=== PATIENT | female | born 1990 | race Caucasian/White ===

== ENCOUNTER → 2019-09-10 | Outpatient (CLI) | payer MEDICAID ==
[2019-09-10 11:18] LABS: Basophils % (A) 0 %; Eosinophils # (A) 0.2 k/uL (0-0.7); Eosinophils % (A) 3 %; HCT 41.2 % (34.0-46.0); Lymphocytes # (A) 1.6 k/uL (1.0-4.8); Lymphocytes % (A) 27 %; MCH 30.9 pg (25.0-35.0); MCV 90.8 fL (80.0-100.0); Mean Platelet Volume 5.7; Monocytes # (A) 0.3 k/uL (0-1.0); Monocytes % (A) 4 %; Neutrophils # (A) 3.9 k/uL (1.3-7.7); Neutrophils % (A) 65 %; Platelet Count 228 k/uL (150-450); RBC 4.53 m/uL (3.80-5.40); RDW 12.1 % (11.5-15.5); WBC 6.1 k/uL (3.8-10.6)
[2019-09-10 16:39] LABS: African American GFR (CKD) 116.3 (60.0-200.0); Albumin 4.8 g/dL (3.80-4.90); Albumin/Globulin Ratio 2.09 (1.60-3.17); BUN/Creat Ratio 18.75 Ratio (12.00-20.00); Calcium 9.7 mg/dL (8.7-10.3); Chol/HDL Ratio 3.93; Globulin 2.3 g/dL (1.6-3.3); Non-African American GFR(CKD) 100.3 (60.0-200.0); Potassium 4.1 mmol/L (3.5-5.5); Total Protein 7.1 g/dL (6.2-8.2)
[2019-09-10 17:02] LABS: T4, Free (Free Thyroxine) 0.8 ng/dL (0.80-1.80)
== END | disposition home or self-care (01) ==
LOC: LABWHC1 10:42
DX: Z00.01 Encounter for general adult medical examination with abnormal findings (principal); E03.9 Hypothyroidism, unspecified; E55.9 Vitamin D deficiency, unspecified
CPT/HCPCS: 36415; 80053; 80061; 82306; 84439; 84443; 85025

== ENCOUNTER → 2019-10-12 | Outpatient (CLI) | payer MEDICAID ==
--- NOTE | 2019-10-12 13:53 | US ---
EXAMINATION TYPE: US thyroid st tissue head/neck DATE OF EXAM: 10/12/2019 COMPARISON: NONE CLINICAL HISTORY: E06.9 THYROIDITIS. GLAND SIZE: Right Lobe: 4.5 x 1.5 x 1.5 cm Overall Parenchyma: heterogenous Left Lobe: 4.7 x 1.3 x 1.6 cm Overall Parenchyma: heterogeneous Isthmus Thickness: 0.3 cm NODULES RIGHT: # of nodules measured on right: 0 LEFT: # of nodules measured on left: 0 ISTHMUS: # of nodules measured in the isthmus: 0 Bilateral neck scanned, no evidence of lymphadenopathy. Gland is diffusely heterogeneous bilaterally. IMPRESSION: Diffuse glandular heterogeneity without discrete nodule. Finding could be on the basis of chronic or acute thyroiditis. Correlate with serum laboratory values.
== END | disposition home or self-care (01) ==
LOC: RADUSWWP 13:21
PROVIDERS: ATTEND Nurse Practitioner Primary Care
DX: R94.6 Abnormal results of thyroid function studies (principal); E06.3 Autoimmune thyroiditis
CPT/HCPCS: 76536

== ENCOUNTER → 2020-02-10 | Outpatient (CLI) | payer MEDICAID ==
[2020-02-10 18:38] LABS: T4, Free (Free Thyroxine) 1.4 ng/dL (0.80-1.80)
== END | disposition home or self-care (01) ==
LOC: LABWHC1 11:17
PROVIDERS: ATTEND Nurse Practitioner Primary Care
DX: E05.90 Thyrotoxicosis, unspecified without thyrotoxic crisis or storm (principal)
CPT/HCPCS: 36415; 84439; 84443

== ENCOUNTER → 2020-03-02 | Outpatient (CLI) | payer MEDICAID ==
[2020-03-02 14:17] LABS: African American GFR (CKD) >90 (>60 ml/min/1.73 sqM); Anion Gap 6 mmol/L; Blood Urea Nitrogen 10 mg/dL (7-17); Calcium 9.3 mg/dL (8.4-10.2); Carbon Dioxide 27 mmol/L (22-30); Chloride 103 mmol/L (98-107); Glucose 86 mg/dL (74-99); Non-African American GFR(CKD) >90 (>60 ml/min/1.73 sqM); Potassium 3.9 mmol/L (3.5-5.1); Sodium 136 mmol/L (137-145)
[2020-03-02 14:19] LABS: Basophils % (A) 0 %; Eosinophils # (A) 0.1 k/uL (0-0.7); Eosinophils % (A) 1 %; HCT 40.8 % (34.0-46.0); HGB 13.4 gm/dL (11.4-16.0); Lymphocytes # (A) 1.4 k/uL (1.0-4.8); Lymphocytes % (A) 21 %; MCH 31.1 pg (25.0-35.0); MCHC 32.7 g/dL (31.0-37.0); MCV 94.9 fL (80.0-100.0); Mean Platelet Volume 7.6; Monocytes # (A) 0.3 k/uL (0-1.0); Monocytes % (A) 4 %; Neutrophils # (A) 4.7 k/uL (1.3-7.7); Neutrophils % (A) 73 %; Platelet Count 210 k/uL (150-450); WBC 6.5 k/uL (3.8-10.6)
== END | disposition home or self-care (01) ==
LOC: LABPAT 11:55
PROVIDERS: ATTEND Urology
DX: Z01.818 Encounter for other preprocedural examination (principal); N30.11 Interstitial cystitis (chronic) with hematuria; N13.1 Hydronephrosis with ureteral stricture, not elsewhere classified
CPT/HCPCS: 36415; 80048; 81025; 85025

== ENCOUNTER → 2020-03-07 | Outpatient (CLI) | payer MEDICAID | END | disposition home or self-care (01) | LOC: LABWHC1 13:41 | PROVIDERS: ATTEND Urology | DX: Z11.59 Encounter for screening for other viral diseases (principal) ==

== ENCOUNTER → 2020-03-09 | Day surgery (SDC) | payer MEDICAID ==
[2020-03-08 10:56] VITALS: BMI 25.0
--- NOTE | 2020-03-08 14:32 | P.GSHP ---
History of Present Illness H&P Date: 03/03/20 Chief Complaint: Bladder pain The patient is a 29-year-old white female diagnosed with interstitial cystitis and approximately 2012. She has failed treatment with Elmiron, Elavil, and rescue treatments. InterStim (which has been removed) and Myrbetriq caused decreased urinary frequency. She underwent Botox on 1-2 occasions, resulting in hesitancy, decreased urinary frequency, but no change in her bladder pain. She has undergone hydrodistention with DMSO instillation on multiple occasions, most recently in May 2019. This usually results in decreased bladder pain. The patient also has a history of medullary sponge kidney and urolithiasis. She has passed several small calculi in recent years. She has previously undergone ureteroscopy on 2 occasions, and states that she had a right ureteral stricture. - Constitutional Constitutional: Denies chills, Denies fever - Genitourinary (Male) Genitourinary: Reports urinary frequency, Denies dysuria, Denies flank pain, Denies hematuria Past Medical History Past Medical History: Thyroid Disorder Additional Past Medical History / Comment(s): Interstitial cystitis, kidney stones, hypothyroidism, L5-S1 disc herniation Additional Past Surgical History / Comment(s): Interstim insertion with subsequent removal, section, repair of rectal fissure, multiple cystoscopy with hydrodistentions, cystoscopy with Botox - Past Family History Mother Family Medical History: No Reported History Medications and Allergies Home Medications Medication Instructions Recorded Confirmed Type Levothyroxine Sodium [Synthroid] 50 mcg PO DAILY 03/08/20 03/08/20 History Norethindrone-E.estradiol-Iron 1 each PO DAILY 03/08/20 03/08/20 History [Junel Fe 24 Tablet] Oxybutynin Chloride [Oxybutynin 10 mg PO DAILY 03/08/20 03/08/20 History Chloride ER] Promethazine [Phenergan] 12.5 mg PO BID 03/08/20 03/08/20 History traMADol HCL [Ultram] 100 mg PO BID 03/08/20 03/08/20 History Allergies Allergy/AdvReac Type Severity Reaction Status Date / Time adhesive tape Allergy Rash/Hives Verified 03/08/20 10:27 ceftriaxone [From Rocephin] Allergy Rash/Hives Verified 03/08/20 10:27 Penicillins Allergy Unknown Verified 03/08/20 10:27 Childhood Surgical - Exam - General well developed, well nourished, no distress - Neck no masses, trachea midline - Respiratory normal respiratory effort, clear to auscultation - Cardiovascular Rhythm: regular Abnormal Heart Sounds: no systolic murmur, no diastolic murmur, no rub, no S3 Gallop, no S4 Gallop, no click, no other - Abdomen Abdomen: soft, non tender, no guarding, no rigid, no rebound - Genitourinary normal external genitalia, normal perineum - Psychiatric oriented to time, oriented to person, oriented to place, speech is normal, memory intact Assessment and Plan (1) Interstitial cystitis Status: Acute Code(s): N30.10 - INTERSTITIAL CYSTITIS (CHRONIC) WITHOUT HEMATURIA SNOMED Code(s): 223918229 (2) Hydronephrosis with ureteral stricture, not elsewhere classified Status: Acute Code(s): N13.1 - HYDRONEPHROSIS W URETERAL STRICTURE, NEC SNOMED Code(s): 05234550 Plan: Cystoscopy, right retrograde pyelogram, possible right ureteroscopy, possible right ureteral stent insertion, hydrodistention with DMSO instillation. The procedure has been reviewed in detail with the patient. She is aware of potential risks, which include anesthesia, bleeding, infection, ureteral injury, and bladder injury.
[~2020-03-09] MED LIST: ALFENTANIL 500 MCG/ML 2 ML AMP IV ONE; DEXAMETHASONE SOD PHOSPHATE 10 MG/ML 1 ML VIAL IV ONE; DIMETHYL SULFOXIDE MC ONE; HYDROmorphone 1 MG/ML 1 ML SYRINGE IVP ONE; IOPAMIDOL-370 50ML BTL MISCELLANE ONE; KETOROLAC 30 MG/ML 1 ML VIAL IVP ONE; LACTATED RINGERS 1,000 ML IV SCH; LEVOFLOXACIN 500MG-D5W PMX 500 MG in DEXTROSE/WATER 1 100ML.BAG IVPB ONE; LIDOCAINE 1% (10MG/ML) FOR IV START INTRADERMA PRN; LIDOCAINE 1% INJ 10MG/ML (20 ML MDV) ONE; MIDAZOLAM 2 MG/2 ML VIAL ONE; PROPOFOL 10 MG/ML 20 ML VIAL IV ONE; SCOPOLAMINE 1.5MG/72HR PATCH TRANSDERM ONE; SUCCINYLCHOLINE CHLORIDE 100 MG/5 ML SYR IV ONE; fentaNYL (PF) 50 MCG/ML 2 ML AMP ONE
[2020-03-09] MEDS: ONDANSETRON 4 MG/2 ML VIAL IVP ONE ×2 (12:44→16:43)
[2020-03-09] MEDS: MIDAZOLAM 2 MG/2 ML VIAL IV ONE ×4 (12:56→15:21)
--- NOTE | 2020-03-09 14:07 | FL ---
EXAMINATION TYPE: FL urography retrograde DATE OF EXAM: 03/09/2020 COMPARISON: NONE HISTORY: TECHNIQUE: Fluoroscopy. FINDINGS: Fluoroscopic guidance was provided during procedure of 20 seconds. IMPRESSION: As Above.
--- NOTE | 2020-03-09 14:08 | P.OP ---
Date of Procedure: 03/09/20 Preoperative Diagnosis: Interstitial cystitis, right ureteral stricture Postoperative Diagnosis: Same Procedure(s) Performed: Cystoscopy with hydrodistention, right retrograde pyelogram Anesthesia: MARYCRUZ Surgeon: Cesar Thompson Estimated Blood Loss (ml): 5 IV fluids (ml): 500 Pathology: none sent Condition: stable Disposition: PACU Indications for Procedure: The patient is a 29-year-old white female diagnosed with interstitial cystitis and approximately 2012. She has failed treatment with Elmiron, Elavil, and rescue treatments. InterStim (which has been removed) and Myrbetriq caused decreased urinary frequency. She underwent Botox on 1-2 occasions, resulting in hesitancy, decreased urinary frequency, but no change in her bladder pain. She has undergone hydrodistention with DMSO instillation on multiple occasions, most recently in May 2019. This usually results in decreased bladder pain. Operative Findings: 1) Diffuse submucosal glomerulations consistent with interstitial cystitis. 2) No evidence of right ureteral stricture. Description of Procedure: The patient was taken to the operating room and placed in the dorsal lithotomy position, with her legs supported in Sin stirrups. The external genitalia was prepped and draped sterilely. The 30 lens was used to introduce the 22-Grenadian Storzt cystoscopic sheath through the urethra and into the bladder under direct vision. The urethra appeared normal, as did the bladder. Both ureteral orifices were of normal anatomic location and configuration, and clear urine effluxed from both. No tumors, foreign bodies, or inflammatory lesions were seen. Using a 10-Grenadian cone-tipped catheter, a retrograde pyelogram was performed in the standard fashion. The ureter was visualized using fluoroscopy. The ureter was normal in caliber, but no areas of narrowing or filling defects seen. There was no evidence of hydronephrosis. With the irrigant hung at 85 cm above the patient's bladder, the bladder was filled to capacity. 600 cc was then drained from the bladder. Cystoscopy was repeated, revealing diffuse submucosal petechiae with congestion. No ulcerations were seen. The bladder was again filled to capacity, then drained. Minor oozing was noted, which did not warrant fulguration. The patient tolerated the procedure well and was taken to the recovery room in stable condition. 50 mL of DMSO was to be instilled into the bladder in the recovery room. She will then be discharged home and follow-up in 2 weeks.
[2020-03-09 14:16] VITALS: TEMP 97.8
[2020-03-09] MEDS: HYDROmorphone 0.5 MG/0.5 ML SYRINGE IVP PRN ×3 (14:25→14:54)
[2020-03-09] MEDS: fentaNYL (PF) 50 MCG/ML 2 ML AMP IVP ONE ×3 (15:06→15:21)
[2020-03-09 15:51] VITALS: BP 132/82
[2020-03-09 16:21] VITALS: PULSE 104; RESP 16
[2020-03-09] MEDS: MORPHINE SULFATE 4 MG/ML SYRINGE IV ONE ×2 (16:21→17:00)
== END ==
LOC: OR 11:27
PROVIDERS: ATTEND Urology
DX: N30.10 Interstitial cystitis (chronic) without hematuria (principal); Q61.5 Medullary cystic kidney; E03.9 Hypothyroidism, unspecified; M51.27 Other intervertebral disc displacement, lumbosacral region; Z88.0 Allergy status to penicillin; Z88.1 Allergy status to other antibiotic agents; Z98.890 Other specified postprocedural states; Z87.442 Personal history of urinary calculi; Z79.890 Hormone replacement therapy; Z79.891 Long term (current) use of opiate analgesic; Z91.09 Other allergy status, other than to drugs and biological substances; Z91.89 Other specified personal risk factors, not elsewhere classified
CPT/HCPCS: 74420; 52260; C1758; J2250; J2270; J1100; J2405; J1956; J2001; J3010; J1885; J1170 ×2; J0330; J2704; Q9967; J1212

== ENCOUNTER 2020-05-25 02:44 | Emergency (ER) | payer MEDICAID ==
[2020-05-25] MEDS ORDERED: DEXTROSE 5%-0.45% NACL 1,000 ML IV ONE (03:43)
[2020-05-25] MEDS ORDERED: ACETAMINOPHEN TAB 325 MG TAB PO STA (03:44)
--- NOTE | 2020-05-25 04:30 | ED ---
Extremity Problem HPI - General Chief complaint: Extremity Problem,Nontraumatic Stated complaint: back pain/ 11 weeks Time Seen by Provider: 05/25/20 03:13 Source: patient Mode of arrival: ambulatory Limitations: no limitations - History of Present Illness MD Complaint: extremity pain -: days(s) Location: right, lower extremity History of Same: No -: Yes myalgia Radiation: none Quality: dull Consistency: constant Improves with: nothing Worsens with: palpation Associated Symptoms: denies other symptoms - Related Data Home Medications Medication Instructions Recorded Confirmed Levothyroxine Sodium [Synthroid] 50 mcg PO DAILY 03/08/20 03/08/20 Norethindrone-E.estradiol-Iron 1 each PO DAILY 03/08/20 03/09/20 [Junel Fe 24 Tablet] Oxybutynin Chloride [Oxybutynin 10 mg PO DAILY 03/08/20 03/09/20 Chloride ER] Promethazine [Phenergan] 12.5 mg PO BID 03/08/20 03/08/20 traMADol HCL [Ultram] 100 mg PO BID 03/08/20 03/08/20 Allergies Allergy/AdvReac Type Severity Reaction Status Date / Time adhesive tape Allergy Rash/Hives Verified 05/25/20 02:53 ceftriaxone [From Rocephin] Allergy Rash/Hives Verified 05/25/20 02:53 Penicillins Allergy Unknown Verified 05/25/20 02:53 Childhood Review of Systems ROS Statement: Those systems with pertinent positive or pertinent negative responses have been documented in the HPI. ROS Other: All systems not noted in ROS Statement are negative. Constitutional: Denies: fever, chills Respiratory: Denies: cough, dyspnea, wheezes Cardiovascular: Denies: chest pain, palpitations, orthopnea, edema, syncope Gastrointestinal: Denies: abdominal pain, vomiting, diarrhea Musculoskeletal: Reports: as per HPI, myalgia. Denies: back pain Skin: Denies: rash Neurological: Denies: weakness, numbness Past Medical History Past Medical History: Thyroid Disorder Additional Past Medical History / Comment(s): back problems History of Any Multi-Drug Resistant Organisms: None Reported Past Surgical History: No Surgical Hx Reported Past Psychological History: Anxiety Smoking Status: Never smoker Past Alcohol Use History: None Reported Past Drug Use History: None Reported General Exam Limitations: no limitations General appearance: alert, in no apparent distress Head exam: Present: atraumatic, normocephalic Respiratory exam: Present: normal lung sounds bilaterally. Absent: respiratory distress, wheezes, rales, rhonchi, stridor Cardiovascular Exam: Present: normal rhythm, tachycardia, normal heart sounds. Absent: systolic murmur, diastolic murmur, rubs, gallop GI/Abdominal exam: Present: soft. Absent: distended, tenderness, guarding, re bound, rigid, mass Extremities exam: Present: normal inspection, normal capillary refill, calf tenderness. Absent: pedal edema Back exam: Present: normal inspection. Absent: CVA tenderness (R), CVA tenderness (L) Neurological exam: Present: alert Skin exam: Present: warm, dry, intact, normal color. Absent: rash Course Vital Signs 05/25/20 05/25/20 02:51 03:53 Temperature 98.3 F 98.1 F Pulse Rate 125 H 98 Respiratory 16 16 Rate Blood Pressure 159/95 O2 Sat by Pulse 98 97 Oximetry Medical Decision Making - Lab Data Result diagrams: 05/25/20 04:22 05/25/20 04:22 Lab Results 05/25/20 05/25/20 05/25/20 Range/Units 04:22 04:22 04:22 WBC 8.2 (3.8-10.6) k/uL RBC 4.14 (3.80-5.40) m/uL Hgb 12.6 (11.4-16.0) gm/dL Hct 37.6 (34.0-46.0) % MCV 90.8 (80.0-100.0) fL MCH 30.4 (25.0-35.0) pg MCHC 33.4 (31.0-37.0) g/dL RDW 12.1 (11.5-15.5) % Plt Count 205 (150-450) k/uL Neutrophils % 78 % Lymphocytes % 16 % Monocytes % 4 % Eosinophils % 1 % Basophils % 0 % Neutrophils # 6.4 (1.3-7.7) k/uL Lymphocytes # 1.3 (1.0-4.8) k/uL Monocytes # 0.3 (0-1.0) k/uL Eosinophils # 0.1 (0-0.7) k/uL Basophils # 0.0 (0-0.2) k/uL D-Dimer 0.21 (<0.60) mg/L FEU Sodium 133 L (137-145) mmol/L Potassium 3.9 (3.5-5.1) mmol/L Chloride 104 (98-107) mmol/L Carbon Dioxide 22 (22-30) mmol/L Anion Gap 7 mmol/L BUN 8 (7-17) mg/dL Creatinine 0.41 L (0.52-1.04) mg/dL Est GFR (CKD-EPI)AfAm >90 (>60 ml/min/1.73 sqM) Est GFR (CKD-EPI)NonAf >90 (>60 ml/min/1.73 sqM) Glucose 106 H (74-99) mg/dL Calcium 9.3 (8.4-10.2) mg/dL Total Bilirubin 0.6 (0.2-1.3) mg/dL AST 27 (14-36) U/L ALT 15 (4-34) U/L Alkaline Phosphatase 44 (38-126) U/L Total Protein 6.7 (6.3-8.2) g/dL Albumin 4.0 (3.5-5.0) g/dL Disposition Clinical Impression: Strain of right calf muscle, Dehydration Disposition: HOME SELF-CARE Condition: Good Instructions (If sedation given, give patient instructions): Muscle Strain (ED), Dehydration (ED) Is patient prescribed a controlled substance at d/c from ED?: No Referrals: None,Stated [Primary Care Provider] - 1-2 days
[2020-05-25 05:26] LABS: Basophils % (A) 0 %; Eosinophils # (A) 0.1 k/uL (0-0.7); Eosinophils % (A) 1 %; HCT 37.6 % (34.0-46.0); HGB 12.6 gm/dL (11.4-16.0); Lymphocytes # (A) 1.3 k/uL (1.0-4.8); Lymphocytes % (A) 16 %; MCH 30.4 pg (25.0-35.0); MCHC 33.4 g/dL (31.0-37.0); MCV 90.8 fL (80.0-100.0); Mean Platelet Volume 7.3; Monocytes # (A) 0.3 k/uL (0-1.0); Monocytes % (A) 4 %; Neutrophils # (A) 6.4 k/uL (1.3-7.7); Neutrophils % (A) 78 %; Platelet Count 205 k/uL (150-450); RBC 4.14 m/uL (3.80-5.40); RDW 12.1 % (11.5-15.5); WBC 8.2 k/uL (3.8-10.6)
[2020-05-25 05:27] LABS: ALT 15 U/L (4-34); AST 27 U/L (14-36); African American GFR (CKD) >90 (>60 ml/min/1.73 sqM); Alkaline Phosphatase 44 U/L (38-126); Anion Gap 7 mmol/L; Blood Urea Nitrogen 8 mg/dL (7-17); Calcium 9.3 mg/dL (8.4-10.2); Carbon Dioxide 22 mmol/L (22-30); Chloride 104 mmol/L (98-107); Glucose 106 mg/dL (74-99); Non-African American GFR(CKD) >90 (>60 ml/min/1.73 sqM); Potassium 3.9 mmol/L (3.5-5.1); Sodium 133 mmol/L (137-145); Total Bilirubin 0.6 mg/dL (0.2-1.3); Total Protein 6.7 g/dL (6.3-8.2)
[2020-05-25 08:06] VITALS: BP 109/70; PULSE 98; RESP 16; TEMP 98.5
== END 2020-05-25 06:45 | disposition home or self-care (01) ==
LOC: EC 02:44
DX: O99.89 Other specified diseases and conditions complicating pregnancy, childbirth and the puerperium (principal); S86.111A Strain of other muscle(s) and tendon(s) of posterior muscle group at lower leg level, right leg, initial encounter; E86.0 Dehydration; O99.281 Endocrine, nutritional and metabolic diseases complicating pregnancy, first trimester; E07.9 Disorder of thyroid, unspecified; O99.341 Other mental disorders complicating pregnancy, first trimester; F41.9 Anxiety disorder, unspecified; Z79.890 Hormone replacement therapy; Z79.3 Long term (current) use of hormonal contraceptives; Z79.891 Long term (current) use of opiate analgesic; Z79.899 Other long term (current) drug therapy; Z91.048 Other nonmedicinal substance allergy status; Z88.0 Allergy status to penicillin; Z88.1 Allergy status to other antibiotic agents; Z3A.11 11 weeks gestation of pregnancy; X58.XXXA Exposure to other specified factors, initial encounter
CPT/HCPCS: 36415; 80053; 85025; 85379; 96360; 96361; 99283